=== PATIENT | male | born 1955 | race Caucasian/White ===

== ENCOUNTER 2025-07-03 06:10 | Day surgery (SDC) | payer MEDICARE, OTHER ==
[2025-07-03] MEDS ORDERED: Ketamine 500 mg/10 ML MDV IV ONE (06:11)
[2025-07-03] MEDS ORDERED: Ondansetron 4 MG/2 ML SDV IVPUSH ONE (06:11)
[2025-07-03] MEDS ORDERED: Midazolam 1 MG/ML 2 ML SDV IV ONE (06:11)
[2025-07-03] MEDS ORDERED: Propofol 200 MG/20 ML SDV IV ONE (06:11)
[2025-07-03 06:57] VITALS: BP 138/72; PULSE 68
[2025-07-03] MEDS: Lactated Ringers 1,000 ML IV SCH (07:24)
== END 2025-07-03 09:20 | disposition home or self-care (01) ==
LOC: FB.SDS 06:10
PROVIDERS: ATTEND Surgery
DX: Z12.11 Encounter for screening for malignant neoplasm of colon (principal); K51.90 Ulcerative colitis, unspecified, without complications; D12.2 Benign neoplasm of ascending colon; K63.5 Polyp of colon; I10 Essential (primary) hypertension; E11.9 Type 2 diabetes mellitus without complications; E78.5 Hyperlipidemia, unspecified; Z79.899 Other long term (current) drug therapy
CPT/HCPCS: 00811; 45384; 45385; 82947; 88305; 99100; A9270; J2003; J2250; J2405; J2704; J3490; J7120